=== PATIENT | female | born 1965 ===

== ENCOUNTER 2018-10-24 07:22 | Outpatient (CLI) | payer OTHER ==
[~2018-10-24 07:22] MED LIST: ASA81 MG; MEDROL4 MG; NORFLEX30 MG/ML; PROTONIX40 MG
== END 2018-10-24 07:39 | disposition home or self-care (01) ==
LOC: TOM 07:22
DX: K52.89 Other specified noninfective gastroenteritis and colitis (principal); R93.3 Abnormal findings on diagnostic imaging of other parts of digestive tract

== ENCOUNTER 2019-01-13 07:57 | Outpatient (CLI) | payer OTHER | END 2019-01-13 07:59 | disposition home or self-care (01) | LOC: NUCLEAR 07:57 | DX: R59.1 Generalized enlarged lymph nodes (principal) | CPT/HCPCS: 78815; A9552 ==

== ENCOUNTER 2019-06-08 08:45 | Outpatient (CLI) | payer OTHER | END 2019-06-08 09:30 | disposition home or self-care (01) | LOC: NUCLEAR 08:45 | DX: C81.90 Hodgkin lymphoma, unspecified, unspecified site (principal) | CPT/HCPCS: 78802; A9556 ==

== ENCOUNTER 2019-08-12 08:17 | Outpatient (CLI) | payer OTHER | END 2019-08-12 08:24 | disposition home or self-care (01) | LOC: RX STUDY 08:17 | DX: R13.14 Dysphagia, pharyngoesophageal phase (principal); M54.5 Low back pain; M54.6 Pain in thoracic spine; M53.3 Sacrococcygeal disorders, not elsewhere classified; M47.812 Spondylosis without myelopathy or radiculopathy, cervical region; M47.814 Spondylosis without myelopathy or radiculopathy, thoracic region; M47.817 Spondylosis without myelopathy or radiculopathy, lumbosacral region; M54.2 Cervicalgia ==

== ENCOUNTER 2019-08-25 09:46 | Outpatient (CLI) | payer OTHER | END 2019-08-25 10:25 | disposition home or self-care (01) | LOC: NUCLEAR 09:46 | DX: M85.88 Other specified disorders of bone density and structure, other site (principal); M81.0 Age-related osteoporosis without current pathological fracture ==